=== PATIENT | male | born 1955 | race Caucasian/White ===

== ENCOUNTER 2017-04-06 18:19 | Emergency (ER) | payer OTHER ==
[~2017-04-06] VITALS: Ht 188 cm; Wt 105.0 kg
[2017-04-06 18:21] VITALS: BP 135/85; PULSE 65; RESP 16; TEMP 98.1; O2SAT 98
--- NOTE | 2017-04-06 18:26 | PD ---
Physical Exam Time Seen by Provider: 18:25 Narrative 62 y/o male with L leg wound for 1-2 weeks, it has been getting red and tender. On bactrim for 3 days. Fever 2-3 days ago at home. Vital signs reviewed. Seen at triage desk. Awaiting bed placement. Data Data Last Documented VS Vital Signs Date Time Temp Pulse Resp B/P Pulse Ox O2 Delivery O2 Flow Rate FiO2 04/06/17 18:21 98.1 65 16 135/85 98 MDM Medical Record Reviewed: Yes Supervised Visit with PAWEL: Nasir Nieves Apr 06, 2017 18:26
[2017-04-06] MEDS ORDERED: BENI20TA5 PO (18:29)
[2017-04-06] MEDS ORDERED: BACT800T5 PO (18:29)
[2017-04-06] MEDS ORDERED: TETANUS/DIPHTHERIA TOXOID ADULT 0.5 ML VIAL IM ONE (19:15)
[2017-04-06] MEDS ORDERED: LIDOCAINE 1%/EPINEPHrine 1:100,000 SOLN 20 ML VIAL INFIL ONE (19:15)
[2017-04-06] MEDS ORDERED: CLINDAMYCIN INJ 600 MG in SODIUM CHLORIDE 0.9% INJ 100 ML IV ONE (19:15)
--- NOTE | 2017-04-06 19:55 | PD ---
HPI Chief Complaint: Injury Time Seen by Provider: 19:51 Travel History International Travel<30 days: No Contact w/Intl Traveler<30days: No Traveled to known affect area: No History of Present Illness HPI 62-year-old male that presents to the ED for evaluation of left lower leg infection. Per patient she's had this for about one week. Per patient about a week ago he was doing something and at the change accidentally cut himself in the area. Per patient his been cleaning it with naproxen alcohol results but it started to become more red and swollen about 3 days ago. Patient went to an urgent care and they prescribed Bactrim. No other medications were given and the abscess was not drained. Per patient is getting bigger and is more swelling she states that he's had subjective fevers. He states compliant with the Bactrim. He denies any other medical issues. No history of depression or HIV or diabetes. The patient is no been draining at all. He has no allergies to medication. No other medical issues. PFSH Past Medical History Cardiovascular Problems: Yes (HTN) Hypertension: Yes Tetanus Vaccination: > 5 Years Influenza Vaccination: No Past Surgical History Other Surgery: Yes (brain tumor removed) Social History Alcohol Use: No Tobacco Use: No Substance Use: No Allergies-Medications (Allergen,Severity, Reaction): Coded Allergies: No Known Allergies (Unverified , 04/06/17) Reported Meds & Prescriptions Reported Meds & Active Scripts Active Reported Bactrim DS (Sulfamethoxazole-Trimethoprim) 800-160 Mg Tab 1 Tab PO BID Benicar (Olmesartan) 20 Mg Tab 20 Mg PO DAILY Review of Systems Except as stated in HPI: all other systems reviewed are Neg Physical Exam Narrative GENERAL: SKIN: Warm and dry. Patient has an area of erythema what appears to be an area of purulence which is about 2 cm in diameter. Tender to touch in the area. Some purulence expressed with minimal touch. 1+ leg edema noted. HEAD: Atraumatic. Normocephalic. EYES: Pupils equal and round. No scleral icterus. No injection or drainage. ENT: No nasal bleeding or discharge. Mucous membranes pink and moist. Tongue is midline. No uvula deviation. NECK: Trachea midline. No JVD. CARDIOVASCULAR: Regular rate and rhythm. No murmurs, S3, S4. RESPIRATORY: No accessory muscle use. Clear to auscultation. Breath sounds equal bilaterally. GASTROINTESTINAL: Abdomen soft, non-tender, nondistended. Hepatic and splenic margins not palpable. MUSCULOSKELETAL: Extremities without clubbing, cyanosis, or edema. No obvious deformities. Full range of motion of the upper and lower extremities bilaterally. 2+ pulses bilaterally. NEUROLOGICAL: Awake and alert. No obvious cranial nerve deficits. Motor grossly within normal limits. Five out of 5 muscle strength in the arms and legs. Normal speech. PSYCHIATRIC: Appropriate mood and affect; insight and judgment normal. Data Data Last Documented VS Vital Signs Date Time Temp Pulse Resp B/P Pulse Ox O2 Delivery O2 Flow Rate FiO2 04/06/17 19:00 18 100 04/06/17 18:21 98.1 65 135/85 Orders Complete Blood Count With Diff (04/06/17 19:13) Basic Metabolic Panel (Bmp) (04/06/17 19:13) Blood Culture (04/06/17 19:13) Iv Access Insert/Monitor (04/06/17 19:13) Clindamycin Inj (Cleocin Inj) (04/06/17 19:15) Wound Culture And Gram Stain (04/06/17 19:15) Wound Care (04/06/17 19:15) Tetanus/Diphtheria Tox Adult (Tetanus/Di (04/06/17 19:15) Lidocai-Epi 1%-1:100,000 Inj (Xylocaine- (04/06/17 19:15) Labs Laboratory Tests Test 04/06/17 19:24 White Blood Count 10.5 TH/MM3 Red Blood Count 4.71 MIL/MM3 Hemoglobin 14.7 GM/DL Hematocrit 42.7 % Mean Corpuscular Volume 90.7 FL Mean Corpuscular Hemoglobin 31.2 PG Mean Corpuscular Hemoglobin 34.4 % Concent Red Cell Distribution Width 13.3 % Platelet Count 163 TH/MM3 Mean Platelet Volume 8.5 FL Neutrophils (%) (Auto) 72.0 % Lymphocytes (%) (Auto) 13.8 % Monocytes (%) (Auto) 10.3 % Eosinophils (%) (Auto) 3.5 % Basophils (%) (Auto) 0.4 % Neutrophils # (Auto) 7.6 TH/MM3 Lymphocytes # (Auto) 1.5 TH/MM3 Monocytes # (Auto) 1.1 TH/MM3 Eosinophils # (Auto) 0.4 TH/MM3 Basophils # (Auto) 0.0 TH/MM3 CBC Comment DIFF FINAL Differential Comment MDM Medical Decision Making Medical Screen Exam Complete: Yes Emergency Medical Condition: Yes Medical Record Reviewed: Yes Interpretation(s) CBC Diagram 04/06/17 19:24 Differential Diagnosis Abscesses versus cellulitis versus failed outpatient treatment Narrative Course 62-year-old male that presents to the ED for evaluation of abscess to the left leg. Patient was properly examined and was found to have signs and symptoms appeared to be very consistent with an abscess to the left leg. He has not been draining. Patient has been compliant medication that do not believe that this is necessarily failed outpatient treatment. I think that this requires incision and drainage and this likely will improve the symptoms. Patient is in agreement with this plan. Patient will be given a booster of tetanus. After explained procedure to the patient and she agreed to it abscess was incised and drained as stated in procedure note. Patient was started on IV Clinda. Patient will be added clindamycin to his regimen. Patient was told to continue to in the Bactrim. About 4-5 cc of fluid were removed from the abscess. Packing was placed. Patient was told to do wound care. Follow up closely with PCP. See ED worsening symptoms. Procedures Procedure Narrative After the risks and benefits were discussed the following procedure was performed: INCISION AND DRAINAGE OF ABSCESS: The area was prepped and was sterilely draped. A subcutaneous wheal of 1 % Xylocaine with a total number 5 mL was used to anesthetize the area. The area was properly anesthetized. A number 11 scalpel was used to make a 1 -cm incision across the area of the abscess. Cultures were obtained. The abscess was drained an irrigated with normal saline. Quarter inch iodoform packing was placed in the wound. Sterile dressing applied. Patient advised to have packing removed in two days. Diagnosis Primary Impression: Abscess Additional Impression: Cellulitis Qualified Code: L03.116 - Cellulitis of left lower extremity Patient Instructions: General Instructions Additional Instructions: Take medication as prescribed. Follow with PCP. See ED worsening symptoms. Warm compresses. Continue taking Bactrim. packing removed in 2 days. Med/Other Pt SpecificInfo: Prescription(s) given, Wound Care Disposition: DISCHARGE HOME Condition: Stable Blake Jacinto Apr 06, 2017 19:55
[2017-04-06 20:01] LABS: AUTOMATED NEUTROPHIL # 7.6 TH/MM3 (1.8-7.7); BASOPHIL % 0.4 % (0.0-2.0); EOSINOPHIL # 0.4 TH/MM3 (0-0.4); EOSINOPHIL % 3.5 % (0.0-4.0); HEMATOCRIT 42.7 % (39.0-51.0); HEMO FLAGS DIFF FINAL; LYMPH % 13.8 % (9.0-44.0); LYMPHOCYTE # 1.5 TH/MM3 (1.0-4.8); MEAN CELL VOLUME 90.7 FL (80.0-100.0); MEAN CORPUSCULAR HEMOGLOBIN 31.2 PG (27.0-34.0); MEAN CORPUSCULAR HGB CONC 34.4 % (32.0-36.0); MONO % 10.3 % (0.0-8.0); PLATELET COUNT 163 TH/MM3 (150-450); RED BLOOD COUNT 4.71 MIL/MM3 (4.50-5.90); RED CELL DISTRIBUTION WIDTH 13.3 % (11.6-17.2); WHITE BLOOD COUNT 10.5 TH/MM3 (4.0-11.0)
[2017-04-06] MEDS ORDERED: CLIN1CAP5 PO (20:10)
[2017-04-06 20:19] LABS: BICARBONATE 28.1 MEQ/L (21.0-32.0); POTASSIUM 3.9 MEQ/L (3.5-5.1)
== END 2017-04-06 20:33 | disposition home or self-care (01) ==
LOC: NEPC 18:19
DX: L03.116 Cellulitis of left lower limb (principal); I10 Essential (primary) hypertension; Z79.899 Other long term (current) drug therapy
CPT/HCPCS: 10061; 80048; 85025; 86403; 87040; 87070; 87186; 87205; 90471; 90714